=== PATIENT | male | born 1950 | race Caucasian/White ===

== ENCOUNTER 2025-04-14 13:37 | Inpatient (IN) | payer OTHER, SELFPAY ==
[2025-04-14 10:23] LABS: Hematocrit 42.3 % (39.0-52.0); Hemoglobin 13.8 g/dL (13.0-18.0); Mean Corp Hgb Conc. 32.6 g/dL (33.0-37.0); Mean Corpuscular Volume 93.2 fL (80.0-94.0); Nucleated Red Blood Cells % 0 % (-); Platelet Count 350 10^3/uL (130-400); Red Cell Dist. Width 16.3 % (11.5-14.5)
[2025-04-14 10:25] LABS: ALT (SGPT) 46 U/L (0-50); AST (SGOT) 46 U/L (17-59); Albumin 4.3 g/dl (3.5-5.0); Alkaline Phosphatase 54 U/L (38-126); Blood Urea Nitrogen 54 mg/dl (9-20); Carbon Dioxide 30 mmol/L (22-30); Chloride 101 mmol/L (98-107); Glucose 125 mg/dl (70-99); Potassium 4.0 mmol/L (3.5-5.1); Sodium 139 mmol/L (135-145); Total Protein 7.4 g/dl (6.3-8.2); eGFR 24.13
[2025-04-14 10:47] LABS: Calcium 15.8 mg/dl (8.4-10.2)
--- NOTE | 2025-04-14 11:29 | ED.GENMED ---
History of Present Illness
General
Chief Complaint: Abnormal Lab Value
Time Seen by Provider: 04/14/25 11:11
History of Present Illness
History of Present Illness:
74-year-old male with history of hypertension, rheumatoid arthritis, parathyroid and ectomy presents to the emergency department for evaluation of elevated calcium. Over the past several days he has been feeling weak and fatigued with brain fog and
nausea, has had poor p.o. intake for the past several days. He notes that he was recently started on Plaquenil for his RA which seems to have triggered the majority of his other symptoms. He had outpatient labs through his chief of [employer] showing a
calcium greater than 15.
Past History
Past History
ED Past Medical History: HTN, Other (Hyperparathyroidism.) and Other (Renal calculi.)
ED Past Surgical History: Orthopedic and Other (Parathyroidectomy)
Social History
Tobacco: Non-smoker
Alcohol: Occasional
Living: with family
Family History
Family History: Negative Diabetes, Hypertension, Early CAD, Asthma or Cancer
Review of Systems
Review of Systems
Allergies reviewed?: Yes
All Other Systems: ROS reviewed and negative except as documented in HPI and ROS
Phy Exam
Physical Exam
Physical Exam:
GEN: Well appearing, NAD, WDWN
HEENT: Oral mucosa dry, no scleral icterus
Cardiac: Regular rate and rhythm, no murmur
Lung: No respiratory distress, no tachypnea, lungs clear to auscultation bilaterally
MSK: No gross deformity or injuries
Skin: Good color, no pallor or jaundice, no rashes
Neuro: AO x3, moves all extremities freely
Psych: Calm, cooperative
Course
Orders/Labs/Results
Orders:
Orders
04/14/25 10:01
Complete Blood Count/With Diff Urgent
Comprehensive Metabolic Panel Urgent
Magnesium Urgent
Phosphorus Urgent
Vitamin D, 25-Oh Urgent
04/14/25 11:14
Add On- LAB Urgent
Tests Added?: magnesium, phosphorus, intact PTH, vitamin D 25-oh
Electrocardiogram (*1) Urgent
Reason for Study: QTc Monitoring
EKG- Treatment ONCE
0.9% Sodium Chloride 1000 ml [Nss] 1,000 ml IV BOLUS
04/14/25 11:34
Consult Nephrology [NEPHROLOGY CONSULT] Urgent
Consulting Provider: Raúl Merlos V.
Was physician already notified: Yes
04/14/25 12:00
Pamidronate Disodium [Aredia] 90 mg 0.9% Sodium Chloride 250 ml [Nss] 250 ml IV ONCE
04/14/25 12:01
Ionized Calcium Urgent
04/14/25 13:23
Admit/Transfer Patient As Directed
Co-Sign Provider:
Level of Care: Inpatient admission
Assign to:: Telemetry
Physician / Group: eugene
Diagnosis: hypercalcemia
Reason for Telemetry: Arrhythmia
Date to Stop Telemetry: 04/17/25
Time to Stop Telemetry: 11:00
Reason for Hospitalization: hypercalcemia
Expected length of stay greater than two midnights?: Yes
ELOS- Estimated Length of Stay in days: 2
I certify the patient meets the requirements for IP care: Yes
Code Status As Directed
Resuscitation Status: Full Code
PRN Pain Medication Management As Directed
May give lesser potent ordered pain med per pt: Yes
preference::
Protocol:: Medication orders for pain may be administered in a
manner that supports deferring to patient preference
when the pt is:
- Requesting an ordered lesser potent pain medication.
Least to most potent pain medications are defined
as: acetaminophen < NSAID < tramadol < opioids
(morphine, oxycodone, hydromorphone).
- Requesting a lesser dose of the same medication IF
ORDERED.
- Requesting a less intrusive route of administration
if both routes are prescribed by the provider (PO <
IV).
04/14/25 13:25
CR Chest - 2 Views Urgent
Comment:
Reason For Exam: SOB
04/14/25 13:39
Urinalysis Reflex To Culture Urgent
Date Specimen was Collected: 04/14/25
Time Specimen was Collected: 13:38
04/14/25 14:14
0.9% Sodium Chloride 1000 ml [Nss] 1,000 ml IV 150 mls/hr
04/14/25 14:14
Activity As Directed
Activity Level: As Tolerated
Vital Signs As Directed
Frequency: Per unit guidelines
DX Deep Vein Thrombosis Video Routine
04/14/25 Dinner
Regular
At Your Request: Full Participation
Does patient need a safe tray?: No
04/14/25 20:00
Heparin 5,000 units SC Q12
04/14/25 22:00
Gabapentin [Neurontin] 300 mg PO HS
04/15/25 06:00
Complete Blood Count/With Diff IN AM
Comprehensive Metabolic Panel IN AM
04/15/25 08:00
FOLic ACID [Folvite] 2 mg PO DAILY
Multivitamin [Theragran] 1 tablet PO DAILY
04/17/25 11:00
DC Protocol for Telemetry ONCE
Abnormal Lab Results
04/14/25 04/14/25
10:01 12:01
WBC 11.8 H 10^3/uL
(4.8-10.8)
RBC 4.54 L 10^6/uL
(4.70-6.10)
MCHC 32.6 L g/dL
(33.0-37.0)
RDW 16.3 H %
(11.5-14.5)
Abs Immat Gran (auto) 0.1 H 10^3/uL
(0-0.05)
Absolute Neuts (auto) 10.2 H 10^3/uL
(1.4-6.5)
Absolute Lymphs (auto) 0.6 L 10^3/uL
(1.2-3.4)
Absolute Monos (auto) 0.7 H 10^3/uL
(0.1-0.6)
Neutrophils % 85.9 H %
(42.2-75.2)
Lymphocytes % 5.2 L %
(20.5-51.1)
BUN 54 H mg/dl
(9-20)
Creatinine 2.7 H mg/dL
(0.7-1.3)
Glucose 125 H mg/dl
(70-99)
Calcium 15.8 H* mg/dl
(8.4-10.2)
Ionized Calcium 1.94 H* mMOL/L
(1.15-1.33)
Vitamin D 25-Hydroxy 29.4 L ng/mL
(30-80)
04/14/25 10:01
04/14/25 10:01
Vital Signs
Initial and Last Documented VS:
Initial Vital Signs
Temp Pulse Resp Pulse Ox
98.0 F 93 16 95
04/14/25 09:54 04/14/25 09:54 04/14/25 09:54 04/14/25 09:54
Last Documented Vital Signs
Temp Pulse Resp BP Pulse Ox
98.5 F 91 18 119/97 95
04/14/25 14:31 04/14/25 14:31 04/14/25 14:31 04/14/25 14:31 04/14/25 14:31
MDM/Problems Addressed
MDM/Problems Addressed:
Patient is hemodynamically stable. Hypercalcemia is mild. Likely multifactorial in setting of volume depletion, thiazide diuretic use, and history of parathyroidectomy. Will be started on IV fluids and bisphosphonate therapy, case was discussed
with nephrology for consultation. Will be admitted to the hospitalist service for further management
*Pulse Oximetry
SaO2: 95
Oxygen Mode of Delivery: Room air
Patient hypoxic: no
*Critical Care Note
Total Time (30-74mins, 75-104mins- exclusive of procedures): 35 minutes
comment:
Critical care time: 35 minutes
Critical care time was exclusive of: Separately billable procedures, treating other patients, and teaching time
Critical care was necessary to treat or prevent imminent or life-threatening deterioration of the following conditions: Hypercalcemia
Critical care time spent personally by me on the following activities:
[x] Review of old charts
[x] Obtaining history from patient or surrogate
[x] Ordering and review of the laboratory studies
[ ] Ordering and review of radiographic studies
[x] Ordering and performing treatments and interventions
[x] Patient patient's response to treatment
[x] Development of treatment plan with patient or surrogate
ED Attending Note
-
Portions of this chart may have been created with voice recognition software.� Occasional wrong word or��sound alike� substitutions may have occurred due to the inherent limitations of voice recognition software.
Discharge Plan
Departure
Patient Disposition: Admit
Date of Disposition: 04/14/25
Time of Disposition: 12:27
Admit to: Telemetry
Presentation/result/management discussed w/ accepting MD/DO: Hospitalist
Discharge Problem:
Hypercalcemia
Interventions
Interventions:
*Risk Screen - Suicide Last Done: 04/14/25 09:54
*General Assessment Last Done: 04/14/25 09:54
*Neglect/Abuse Screening Last Done: 04/14/25 09:54
*ED- Fall Risk Assessment Last Done: 04/14/25 11:45
*ED COVID-19 Vaccine History Last Done: 04/14/25 11:45
*Nursing Disposition Last Done: 04/14/25 14:10
Discharge Date and Time
Discharge Date/Time: 04/14/25 14:11
[2025-04-14 11:32] VITALS: BMI 30.7
[2025-04-14 11:41] VITALS: BP 107/78
[2025-04-14 12:00] VITALS: BP 114/72
[2025-04-14] MEDS: NSS 1000 IV ×3 (12:02→21:48)
[2025-04-14 12:09] LABS: Magnesium 1.7 mg/dl (1.6-2.3)
[2025-04-14] MEDS: AREDIA 280 MG IV (12:12)
[2025-04-14 12:25] LABS: Vitamin D, 25-OH*** 29.4 ng/mL (30-80)
--- NOTE | 2025-04-14 12:31 | W.CON.NEPH ---
Consultation
-
Date/Time Consultation Requested: 04/14/2025 11:30 AM
Date/Time Consultation Performed: 04/14/2025 11:30 AM
Requesting Provider: Dr. Hastings
Performing Provider: Dr. Merlos
Reason for Consultation: Acute kidney injury/hypercalcemia
Medical History
-
Chief Complaint: Acute kidney injury hypercalcemia
History of Present Illness:
The patient is a 74-year-old male with a past medical history of hypertension maintained on losartan and hydrochlorothiazide. He has a prior history of chronic kidney disease stage IIIb who follows with myself in our nephrology office. His last
baseline creatinine was stable at 1.77 with a calcium level of 9.8 noted on 02/15/2025 when I last seen him in the office. He has a prior history of nephro lithiasis and nephrocalcinosis and is maintained on potassium citrate and thiazide diuretic.
He had undergone previous partial parathyroidectomy for hypercalcemia greater than 20 years ago. 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 He presented to the hospital after feeling poorly over the past several days with associated weakness fatigue brain fog and nausea. His diet has also been poor as he has not been eating as much over the past several days.. He had
attributed this to the recent initiation of Plaquenil for his RA. When he presented to the hospital he was in acute kidney failure with a creatinine of 2.7 and hypercalcemic with a serum calcium of 15.8 and nephrology was consulted.
Past Medical History
Hypertension, chronic kidney disease stage IIIb 1.77 based, primary hyperparathyroidism with prior history of partial parathyroidectomy, renal calculi nephrocalcinosis, rheumatoid arthritis
Social History
Tobacco: Non-Smoker
Alcohol: Occasional
Drug: None
Personal:
Living: With Family
Family History
Family History: Not Pertinent
Allergies / Home Medications
Allergy/AdvReac Type Severity Reaction Status Date / Time
No Known Allergies Allergy Unverified 04/14/25 09:53
�Medication �Instructions �Recorded �Confirmed �Type
gabapentin 300 mg capsule 300 mg PO HS 11/01/18 04/14/25 History
Greens Supplement 1 tab PO DAILY 04/14/25 04/14/25 History
folic acid 1 mg tablet 2 mg PO DAILY 04/14/25 04/14/25 History
hydrochlorothiazide 25 mg tablet 25 mg PO DAILY 04/14/25 04/14/25 History
losartan 50 mg tablet 50 mg PO HS 04/14/25 04/14/25 History
methotrexate sodium 2.5 mg tablet 10 mg PO MARCANO 04/14/25 04/14/25 History
multivitamin 1 tab PO DAILY 04/14/25 04/14/25 History
potassium citrate 10 mEq (1,080 10 meq PO MEALS 04/14/25 04/14/25 History
mg) tablet,extended release
Review of Systems
-
History Source: Patient
All other systems: Negative unless noted
Constitutional: Fatigue
Respiratory: No Symptoms
Cardiac: No Symptoms
Abdomen/GI: Nausea and Anorexia
: No Symptoms
Musculoskeletal: Joint Pain
Skin: No Symptoms
Neurological: Other (Brain fog)
Endocrine: No Symptoms
Hematologic/Lymphatic: No Symptoms
Physical Exam
Vital Signs
Vital Signs
Temp Pulse Resp BP Pulse Ox
98.0 F 70 16 107/78 93
04/14/25 09:54 04/14/25 11:45 04/14/25 11:45 04/14/25 11:41 04/14/25 11:42
Lab Results
04/14/25 10:01
04/14/25 10:01
WBC 11.8 10^3/uL (4.8-10.8) H 04/14/25 10:01
RBC 4.54 10^6/uL (4.70-6.10) L 04/14/25 10:01
Hgb 13.8 g/dL (13.0-18.0) 04/14/25 10:01
Hct 42.3 % (39.0-52.0) 04/14/25 10:01
Plt Count 350 10^3/uL (130-400) 04/14/25 10:01
Sodium 139 mmol/L (135-145) 04/14/25 10:01
Potassium 4.0 mmol/L (3.5-5.1) 04/14/25 10:01
Chloride 101 mmol/L (98-107) 04/14/25 10:01
Carbon Dioxide 30 mmol/L (22-30) 04/14/25 10:01
BUN 54 mg/dl (9-20) H 04/14/25 10:01
Creatinine 2.7 mg/dL (0.7-1.3) H 04/14/25 10:01
eGFR 24.13 04/14/25 10:01
Glucose 125 mg/dl (70-99) H 04/14/25 10:01
Calcium 15.8 mg/dl (8.4-10.2) H* 04/14/25 10:01
Phosphorus 3.9 mg/dl (2.5-4.5) 04/14/25 10:01
Albumin 4.3 g/dl (3.5-5.0) 04/14/25 10:01
Physical Exam
General: AOx3, Nontoxic , NAD
HEENT: PERRL, EOMI, Anicteric, Conjunctivae Clear, Ear/Nose Intact, Hearing Normal, Oropharynx Clear/Moist, Dentition Intact, Facial Symmetry, Neck Supple, Neck: Trachea Midline, No JVD and No Thyromegaly, no Bruits
Respiratory: Clear to auscultation bilaterally with normal lung excursion
Cardiac: S1/S2 and Regular Rate/Rhythm
Breast: Deferred by me
Abdomen: Soft, Nontender, Nondistended, Normal Bowel Sounds and No Hepatosplenomegaly
Rectal: Deferred by Provider
Genito-urinary: No Costovertebral Tenderness
Extremities: No Clubbing, No Cyanosis and No Edema
Skin: No Rash or open lesions
Neuro: Nonfocal/Grossly Intact, CN II-XII (Intact) and Strength (Musculoskeletal exam 5 out of 5 both upper and lower extremities), no myoclonic activity no asterixis
Hematologic/Lymphatic: No Cervical Lymphadenopathy, No Submandibular Lymphadenopathy and No Supraclavicular Lymphadenopathy
Psych: Mood/afflect pleasant, Insight/judgement good and Appropriate
Vascular: plus 2 pedal and radial pulses
Data Reviewed
-
Medical Tests (Nuc Med, Echo etc): Other (EKG report reviewed: Sinus rhythm with left axis deviation inferior and anterior wave abnormalities at 70 bpm per report)
Labs: Labs Reviewed by me (BMP CBC)
Old Records: Reviewed (Reviewed previous old records from date 02/15/2025 in the electronic medical record creatinine 1.77 calcium 9.8 intact PTH 63)
Assessment/Plan
-
Impression:
VIDA
Chronic kidney disease stage IIIb (1.7)
Hypercalcemia
Rheumatoid arthritis on methotrexate and recent addition of Plaquenil
History of partial parathyroidectomy
History of nephrocalcinosis and nephrolithiasis
History of hypertension
Plan:
VIDA:
- Likely due to strong prerenal stimulus in setting of hypercalcemia and volume depletion with associated low blood pressure on presentation
- Withhold all antihypertensives and especially hydrochlorothiazide in setting of hypercalcemia and suspected volume depletion
- Accurate I's and O's Daily weights obtain urinalysis urine sodium and urine creatinine
-With hold ARB in setting of acute kidney injury can provide Procardia XL 30 mg twice daily once blood pressure rebounds
-NSS 150cc/hr after fluid bolus given in ER
Hypercalcemia:
- Of note patient's calcium was 9.8 with an associated intact PTH level of 63 on 02/17/2025
- No new medications have been added with the exception of Plaquenil by rheumatology
- Repeat intact PTH obtain activated vitamin D level ,vitamin D level, SPEP ,RODNEY level ,TSH, PTH RP
- Withhold hydrochlorothiazide
- 90 mg of IV pamidronate to be provided in the emergency room, if no response calcitonin will be provided
- Record accurate I's and O's and initiate now normal saline at 150 cc/h to promote Calciuresis
[2025-04-14 13:00] VITALS: BP 135/76
[2025-04-14 14:09] LABS: Urine Character Clear (Clear)
[2025-04-14 14:27] LABS: Urine Red Blood Cell 0-2 /HPF (0-2); Urine Squamous Cell 0-2 /LPF (Few)
[2025-04-14 14:31] VITALS: BP 119/97
[2025-04-14 14:32] VITALS: BMI 32.7
--- NOTE | 2025-04-14 14:34 | HPS.HSE ---
Family Physician
-
Family Physician: Ronny Jacobson
Chief Complaint
-
abnormal labs
History of Present Illness
74-year-old male past medical history of hypercalcemia status post partial parathyroidectomy 20 years ago, hypertension, chronic kidney disease 3B, renal calculi, nephrocalcinosis, rheumatoid arthritis methotrexate presenting with hypercalcemia and
outpatient labs.
He has been eating less and drinking less fluids. He has lost weight. Denies any blood in the stool.
He had routine blood work. He has been having shortness of breath for the past few months and fatigue. He has brain fog. He has cough in the mornings. Denies any fevers or chills. Denies nausea vomiting or abdominal pain or constipation or
diarrhea.
He was recently started on Plaquenil for rheumatoid arthritis.
Denies smoking or alcohol use.
Medical History
Past Medical History
Past Medical History: Reports Other (hypercalcemia status post partial parathyroidectomy 20 years ago, hypertension, chronic kidney disease 3B, renal calculi, nephrocalcinosis, rheumatoid arthritis methotrexate)
Past Surgical History: Reports None
Social History
Tobacco: Non-smoker
Alcohol: None
Drug: None
Family History
Family History: Not pertinent
Allergies / Home Medications
Allergies reflects when Allergies were last updated in [employer].
Home Medications with original date entered in [employer]
Allergy/Medication List:
Allergies
Allergy/AdvReac Type Severity Reaction Status Date / Time
No Known Allergies Allergy Unverified 04/14/25 09:53
Home Medications
gabapentin 300 mg capsule 300 mg PO HS 11/01/18
Greens Supplement 1 tab PO DAILY 04/14/25
folic acid 1 mg tablet 2 mg PO DAILY 04/14/25
hydrochlorothiazide 25 mg tablet 25 mg PO DAILY 04/14/25
losartan 50 mg tablet 50 mg PO HS 04/14/25
methotrexate sodium 2.5 mg tablet 10 mg PO MARCANO 04/14/25
multivitamin 1 tab PO DAILY 04/14/25
potassium citrate 10 mEq (1,080 mg) tablet,extended release 10 meq PO MEALS 04/14/25
Review of Systems
-
History Source: Patient
A 12 point ROS was completed and negative except as noted: Yes
Constitutional: Reports No Symptoms
EENT: Reports No Symptoms
Respiratory: Reports No Symptoms
Cardiac: Reports No Symptoms
Abdomen/GI: Reports No Symptoms
: Reports No Symptoms
Musculoskeletal: Reports No Symptoms
Skin: Reports No Symptoms
Neurological: Reports No Symptoms
Endocrine: Reports No Symptoms
Hematologic/Lymphatic: Reports No Symptoms
Psych: Reports No Symptoms
Physical Exam
Vital Signs
Vital Signs
Temp Pulse Resp BP Pulse Ox
98.5 F 91 18 119/97 95
04/14/25 14:31 04/14/25 14:31 04/14/25 14:31 04/14/25 14:31 04/14/25 14:31
Physical Exam
General: Well Developed, Well Nourished and No Apparent Distress
HEENT: NormoCephalic, Moist mucous membranes and Atraumatic
Respiratory: Clear
Cardiac: S1/S2 and Regular Rhythm; No Murmur or Rub
GI: Soft, Non Tender, Non Distended and Normal Bowel Sounds; No Organomegaly
Rectal: Deferred by Provider
Musculoskeletal: No Clubbing, No Cyanosis and No Edema
Skin: No Rash
Neuro: Nonfocal/grossly intact
Laboratory Results
-
04/14/25 10:01
04/14/25 10:01
Laboratory Results
Total Bilirubin 0.9 mg/dl (0.2-1.3) 04/14/25 10:01
AST 46 U/L (17-59) 04/14/25 10:01
ALT 46 U/L (0-50) 04/14/25 10:01
Alkaline Phosphatase 54 U/L (38-126) 04/14/25 10:01
Data Reviewed
-
Lab Data: Labs Reviewed by me
Old Records: Reviewed
Impression/Plan
-
IMPRESSION:
PLAN:
# Severe hypercalcemia likely due to hypovolemia, hydrochlorothiazide superimposed on VIDA/CKD 3B
# History of hypercalcemia status post partial parathyroidectomy 20 years ago
-Ionized calcium 1.94, calcium 15.8
-PTH 46, vitamin D 29
- IV fluids
- Pamidronate given
- Hold hydrochlorothiazide
- May require myeloma workup, follow-up with outpatient cancer screening
-Check I's and O's, urine output, urinalysis
- Nephrology following
# VIDA on CKD 3B likely prerenal
- IV fluids
- Hold losartan, hydrochlorothiazide
- Potassium
# Dyspnea possibly fatigue from hypercalcemia
- Check chest x-ray
Essential hypertension
- Hold hydrochlorothiazide, losartan,
Rheumatoid arthritis
- Hold methotrexate,
- Hold Plaquenil
-Continue folic acid
- Continue gabapentin
History of renal calculi/nephrocalcinosis
Full code
DVT prophylaxis�heparin
Regular diet
--- NOTE | 2025-04-14 14:42 | PTCARENOTE ---
Arrived to unit and ambulated with single point [facility] to room. Oriented to room. Call schofield within reach.
[2025-04-14 19:27] VITALS: BP 127/67
[2025-04-14] MEDS: HEPARIN 5000 UNITS SC (19:48)
[2025-04-14] MEDS: ZOFRAN 4 MG IV (20:13)
[2025-04-14] MEDS: NEURONTIN 300 MG PO (20:13)
[2025-04-14 23:04] VITALS: BP 113/61
[2025-04-15] VITALS (7 sets, daily range): BP systolic 112–137; BP diastolic 59–79; BMI 32.9
[2025-04-15] MEDS: NSS 1000 IV ×3 (04:28→21:26)
--- NOTE | 2025-04-15 07:52 | W.PN.HOSP.TC ---
Addendum entered and electronically signed by Jak Mojica MD 04/15/25 13:16:
Hypercalcemia could be multifactorial in the setting of immobility, dehydration and medication induced
S/p IV bisphosphonate
If not improving may need to consider calcitonin x 6 doses
IV fluids
VIDA on chronic stage IIIb
IV fluids
Urine sodium urine creatinine
Avoid nephrotoxins and hypotension
Follow renal function
Follow nephrology recs
Original Note:
Today's Communication/Plan
-
Send TSH, RODNEY levels, SPEP
Continue to monitor BMPs
Continue IV fluids
Assessment / Plan
Assessment / Plan
IMPRESSION
Patient is a 74-year-old male with past medical history of hypertension,Chronic kidney disease, nephrolithiasis, rheumatoid arthritis, s/p partial parathyroidectomy 20 years ago who presented to the ER with complaints of weakness and feeling
tired.He follows up with Dr. Castellanos in nephrology office for chronic kidney disease and his creatinine has been stable at 1.7 mL per last visit on 02/15/2025 his calcium level was around 9.8. Presented to the hospital for weakness, fatigue, brain
fog and nausea. Was recently started on Plaquenil for his rheumatoid arthritis and initially attributed symptoms to that but he had no energy at all so he took his blood work that showed creatinine of 2.7 and calcium of 15.8. He presented to the
hospital.
In terms of medications, he is on thiazides and potassium citrate to prevent nephrolithiasis
History of rheumatoid arthritis, previously on methotrexate, recently started on Plaquenil
History of parathyroidectomy about 20 years ago
CKD based on his baseline creatinine
Chest x-ray normal, EKG positive for mild left ventricular hypertrophy
Assessment/plan
# Hypercalcemia
Patient's calcium was 9.8 with an associated intact PTH level of 63 on 02/17/2025
Now calcium 15.8. Associated intact PTH level of 46 and ionized calcium 1.9
Vitamin D levels normal to slightly decreased, Phosphate levels normal, chest x-ray normal
Held hydrochlorothiazide
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 Pearosn held proguanil and methotrexate as soon as he started to feel the symptoms and it has been over the hold from last 2 weeks
He was not really active for the last 2 weeks and was mostly confined to bed, immobilization could be a contributory factor for the hypercalcemia
Non-smoker, check RODNEY levels for small cell lung cancer
Continue IV fluids
Input output monitoring
90 mg of IV pamidronate given in the ER, follow BMP to monitor response, no response plan to start calcitonin
Nephrology consult appreciated-recommended SPEP, RODNEY levels, TSH and PTH related peptide, also added a low-dose of Lasix stat as the patient had 1 L oxygen requirement
I called Dr. Pearson's office and updated about the admission of the patient, current treatment, and informed them that we are working him up for this new onset hypercalcemia and would like to know if they have any additional input on the case.
#VIDA
Acute on chronic CKD stage IIIb
Volume contraction secondary to hypercalcemia along with low on presentation suggests prerenal component
Continue volume resuscitation
Urine sodium and urine creatinine as per nephro
Hold nephrotoxins including ARB's
Monitor blood pressure and use Procardia to help with blood pressure control
#Other medical condition
#Essential hypertension
-monitor blood pressure and use extended release Procardia to help with blood pressure control
#Rheumatoid arthritis
-hold Plaquenil and methotrexate, continue folic acid and gabapentin
#History of nephrocalcinosis/nephrolithiasis
DVT prophylaxis-heparin
CODE STATUS-full code
Anticipated Discharge: > 48 hours
Subjective/Interval History
-
Date of Service: April 15, 2025
Patient seen and examined at bedside
Still has a lot of weakness but feels improved than yesterday
Non-smoker and had discontinued Pregnyl and methotrexate 2 weeks ago when he started to develop the symptoms
Objective Data
-
Labs:
Laboratory Results
04/15/25
07:18
WBC Pending
Hgb Pending
Hct Pending
Plt Count Pending
Sodium Pending
Potassium Pending
Chloride Pending
Carbon Dioxide Pending
BUN Pending
Creatinine Pending
Glucose Pending
Calcium Pending
Total Bilirubin Pending
AST Pending
ALT Pending
Alkaline Phosphatase Pending
Vital Signs:
Vital Signs
Temp Pulse Resp BP Pulse Ox
99.9 F 109 24 129/78 92
04/15/25 05:36 04/15/25 06:37 04/15/25 03:04 04/15/25 06:37 04/15/25 06:22
I&O
04/14/25 04/15/25 04/16/25
06:59 06:59 06:59
Intake Total 2039 / 2039
Output Total 1275 / 1275
Balance 765 / 765
Review of Systems
-
All other systems: Reviewed and negative
Physical Exam
-
General: Well Developed, Appears Chronically Ill, Obese and Other (Breathing on 1 L oxygen)
HEENT: Other (Dry mucous membranes)
Respiratory: Clear to Auscultation; Negative Wheezes, Rales or Rhonchi
Cardiac: Regular Rhythm and S1/S2
GI: Soft, Nontender and Normal Bowel Sounds
Musculoskeletal: No Clubbing, No Cyanosis and No Edema
Skin: Warm and Dry
Neuro: Awake and AO x 3
Psych: Calm
[2025-04-15 08:03] LABS: Hematocrit 37.1 % (39.0-52.0); Hemoglobin 12.3 g/dL (13.0-18.0); Mean Corp Hgb Conc. 33.2 g/dL (33.0-37.0); Mean Corpuscular Volume 91.2 fL (80.0-94.0); Nucleated Red Blood Cells % 0 % (-); Platelet Count 275 10^3/uL (130-400); Red Cell Dist. Width 16.1 % (11.5-14.5)
[2025-04-15 08:22] LABS: ALT (SGPT) 40 U/L (0-50); AST (SGOT) 39 U/L (17-59); Albumin 3.7 g/dl (3.5-5.0); Alkaline Phosphatase 52 U/L (38-126); Blood Urea Nitrogen 47 mg/dl (9-20); Calcium 12.6 mg/dl (8.4-10.2); Carbon Dioxide 26 mmol/L (22-30); Chloride 107 mmol/L (98-107); Estimated Creatinine Clearance 33 ml/min; Glucose 101 mg/dl (70-99); Magnesium 1.5 mg/dl (1.6-2.3); Potassium 3.9 mmol/L (3.5-5.1); Sodium 140 mmol/L (135-145); Total Protein 6.3 g/dl (6.3-8.2); eGFR 27.79
[2025-04-15] MEDS: THERAGRAN 1 TABLET PO (08:22)
[2025-04-15] MEDS: FOLVITE 2 MG PO (08:22)
[2025-04-15] MEDS: HEPARIN 5000 UNITS SC ×2 (08:23→20:02)
[2025-04-15] MEDS: NSS 250 IV (08:59)
[2025-04-15] MEDS: MAGNESIUM SULFATE 50 IV (09:56)
--- NOTE | 2025-04-15 10:41 | W.PN.NEPH.PH ---
Today's Communication / Plan
-
Normal saline, IV Lasix
Assessment/Plan
-
Impression:
VIDA
Chronic kidney disease stage IIIb (1.7)
Hypercalcemia
Rheumatoid arthritis on methotrexate and recent addition of Plaquenil
History of partial parathyroidectomy
History of nephrocalcinosis and nephrolithiasis
History of hypertension
Plan:
VIDA:
- Likely due to strong prerenal stimulus in setting of hypercalcemia and volume depletion with associated low blood pressure on presentation
- Withhold all antihypertensives and especially hydrochlorothiazide in setting of hypercalcemia and suspected volume depletion
- Accurate I's and O's Daily weights obtain urinalysis urine sodium and urine creatinine
-With hold ARB in setting of acute kidney injury can provide Procardia XL 30 mg twice daily once blood pressure rebounds
-NSS 150cc/hr after fluid bolus given in ER
Hypercalcemia:
- Of note patient's calcium was 9.8 with an associated intact PTH level of 63 on 02/17/2025
- No new medications have been added with the exception of Plaquenil by rheumatology
- Repeat intact PTH obtain activated vitamin D level ,vitamin D level, SPEP ,RODNEY level ,TSH, PTH RP
- Withhold hydrochlorothiazide
- 90 mg of IV pamidronate Given
- Record accurate I's and O's and initiate now normal saline at 150 cc/h
Patient requiring oxygen I will give 1 dose of Lasix. A chest x-ray independently reviewed no pulmonary edema though this will help with calcium as well
-
-
Date of Service: April 15, 2025
Labs
-
Labs:
WBC 9.0 10^3/uL (4.8-10.8) 04/15/25 07:18
RBC 4.07 10^6/uL (4.70-6.10) L 04/15/25 07:18
Hgb 12.3 g/dL (13.0-18.0) L 04/15/25 07:18
Hct 37.1 % (39.0-52.0) L 04/15/25 07:18
Plt Count 275 10^3/uL (130-400) D 04/15/25 07:18
Sodium 140 mmol/L (135-145) 04/15/25 07:18
Potassium 3.9 mmol/L (3.5-5.1) 04/15/25 07:18
Chloride 107 mmol/L (98-107) 04/15/25 07:18
Carbon Dioxide 26 mmol/L (22-30) 04/15/25 07:18
BUN 47 mg/dl (9-20) H 04/15/25 07:18
Creatinine 2.4 mg/dL (0.7-1.3) H 04/15/25 07:18
eGFR 27.79 04/15/25 07:18
Glucose 101 mg/dl (70-99) H 04/15/25 07:18
Calcium 12.6 mg/dl (8.4-10.2) H D 04/15/25 07:18
Phosphorus 3.9 mg/dl (2.5-4.5) 04/14/25 10:01
Albumin 3.7 g/dl (3.5-5.0) 04/15/25 07:18
Physical Exam
-
Vital Signs:
Vital Signs
Temp Pulse Resp BP Pulse Ox
98.5 F 103 16 133/71 91
04/15/25 07:00 04/15/25 07:00 04/15/25 07:00 04/15/25 07:00 04/15/25 08:25
Respiratory:: Bilateral: CTA
Lung Excursion:: Normal
Abdomen:: Soft
Bowel Sounds:: Normal
Extremity Edema:: +1: Bilateral:
[2025-04-15 10:45] LABS: TSH 0.48 uIU/ml (0.47-4.68)
[2025-04-15] MEDS: LASIX 20 MG IV (11:20)
--- NOTE | 2025-04-15 16:51 | PTCARENOTE ---
No changes in assessment noted. Plan of care ongoing.
[2025-04-15] MEDS: NEURONTIN 300 MG PO (20:02)
[2025-04-16 03:32] VITALS: BP 107/66
[2025-04-16] MEDS: NSS 1000 IV ×2 (03:49→11:22)
[2025-04-16 04:58] VITALS: BMI 33.2
[2025-04-16 07:30] VITALS: BP 116/69
[2025-04-16 07:56] LABS: Blood Urea Nitrogen 40 mg/dl (9-20); Calcium 10.4 mg/dl (8.4-10.2); Carbon Dioxide 26 mmol/L (22-30); Chloride 110 mmol/L (98-107); Estimated Creatinine Clearance 40 ml/min; Glucose 83 mg/dl (70-99); Magnesium 2.1 mg/dl (1.6-2.3); Potassium 3.6 mmol/L (3.5-5.1); Sodium 139 mmol/L (135-145); eGFR 34.59
[2025-04-16] MEDS: THERAGRAN 1 TABLET PO (10:01)
[2025-04-16] MEDS: FOLVITE 2 MG PO (10:01)
[2025-04-16] MEDS: HEPARIN 5000 UNITS SC ×2 (10:03→19:37)
[2025-04-16 11:25] VITALS: BP 116/69
--- NOTE | 2025-04-16 11:39 | W.PN.NEPH.PH ---
Today's Communication / Plan
-
Continue saline drip
Assessment/Plan
-
Impression:
VIDA
Chronic kidney disease stage IIIb (1.7)
Hypercalcemia
Rheumatoid arthritis on methotrexate and recent addition of Plaquenil
History of partial parathyroidectomy
History of nephrocalcinosis and nephrolithiasis
History of hypertension
Plan:
VIDA:
- Likely due to strong prerenal stimulus in setting of hypercalcemia and volume depletion with associated low blood pressure on presentation
- Withhold all antihypertensives and especially hydrochlorothiazide in setting of hypercalcemia and suspected volume depletion
- Accurate I's and O's Daily weights obtain urinalysis urine sodium and urine creatinine
-With hold ARB in setting of acute kidney injury
-NSS 150cc/hr after fluid bolus given in ER
Hypercalcemia:
- Of note patient's calcium was 9.8 with an associated intact PTH level of 63 on 02/17/2025
- No new medications have been added with the exception of Plaquenil by rheumatology= after further discussion with the patient and his since initiation has been eating less and not feeling well
- Repeat intact PTH obtain activated vitamin D level = 29,vitamin D level, SPEP ,RODNEY level ,TSH, PTH RP= pending
- Withhold hydrochlorothiazide
- 90 mg of IV pamidronate Given on admission
- Record accurate I's and O's
Continue normal saline at 150 cc/h
Given Lasix yesterday will hold today
-
-
Date of Service: April 16, 2025
CC / HPI / ROS
-
Chief Complaint:
Hyperkalemia
History of Present Illness:
Acute kidney injury and hyperkalemia
Review of Systems:
No chest pain shortness of breath yesterday. Comfortable now remains on nasal cannula
Labs
-
Labs:
WBC 9.0 10^3/uL (4.8-10.8) 04/15/25 07:18
RBC 4.07 10^6/uL (4.70-6.10) L 04/15/25 07:18
Hgb 12.3 g/dL (13.0-18.0) L 04/15/25 07:18
Hct 37.1 % (39.0-52.0) L 04/15/25 07:18
Plt Count 275 10^3/uL (130-400) D 04/15/25 07:18
Sodium 139 mmol/L (135-145) 04/16/25 06:34
Potassium 3.6 mmol/L (3.5-5.1) 04/16/25 06:34
Chloride 110 mmol/L (98-107) H 04/16/25 06:34
Carbon Dioxide 26 mmol/L (22-30) 04/16/25 06:34
BUN 40 mg/dl (9-20) H 04/16/25 06:34
Creatinine 2.0 mg/dL (0.7-1.3) H 04/16/25 06:34
eGFR 34.59 04/16/25 06:34
Glucose 83 mg/dl (70-99) 04/16/25 06:34
Calcium 10.4 mg/dl (8.4-10.2) H D 04/16/25 06:34
Phosphorus 3.9 mg/dl (2.5-4.5) 04/14/25 10:01
Albumin 3.7 g/dl (3.5-5.0) 04/15/25 07:18
Physical Exam
-
Vital Signs:
Vital Signs
Temp Pulse Resp BP Pulse Ox
97.5 F 60 16 116/69 93
04/16/25 07:30 04/16/25 07:30 04/16/25 07:30 04/16/25 07:30 04/16/25 10:00
Respiratory:: Bilateral: CTA
Lung Excursion:: Normal
Abdomen:: Soft
Bowel Sounds:: Normal
Extremity Edema:: +1: Bilateral:
--- NOTE | 2025-04-16 11:41 | CM ---
Patient seen bedside w/ spouse, initial assessment completed. Patient is a 74-year-old male past medical history of hypercalcemia status post partial parathyroidectomy 20 years ago, hypertension, chronic kidney disease 3B, renal calculi,
nephrocalcinosis, rheumatoid arthritis methotrexate presenting with hypercalcemia and outpatient labs. On 2L O2.
Patient resides w/ spouse in a 2STH, 2 steps to enter from the outside. Patient is independent w/ ambulation, no device required. Independent w/ ADLs and personal care. Patient has a shower chair in the bathroom. Denies SNF hx. Home PT in 2021 and
2022. Recent OP therapy for hand.
Address, point of contact and insurance verified. Patient and spouse requesting their son be added as secondary contact. Admissions updated
PCP: Ronny Lofton
Pharmacy: [facility]
Plan: Home, no needs likely
--- NOTE | 2025-04-16 12:10 | W.PN.HOSP.TC ---
Addendum entered and electronically signed by Jak Mojica MD 04/16/25 13:46:
Hypercalcemia could be multifactorial in the setting of immobility, dehydration and medication induced
S/p IV bisphosphonate
If not improving may need to consider calcitonin x 6 doses
IV fluids
VIDA on chronic stage IIIb
IV fluids
Urine sodium urine creatinine
Avoid nephrotoxins and hypotension
Follow renal function
Follow nephrology recs
Original Note:
Today's Communication/Plan
-
Legal Director consulted for recs if another dose of lasix need today
doppler US of left lower leg for left leg swelling
Assessment / Plan
Assessment / Plan
IMPRESSION
Patient is a 74-year-old male with past medical history of hypertension,Chronic kidney disease, nephrolithiasis, rheumatoid arthritis, s/p partial parathyroidectomy 20 years ago who presented to the ER with complaints of weakness and feeling
tired.He follows up with Dr. Castellanos in nephrology office for chronic kidney disease and his creatinine has been stable at 1.7 mL per last visit on 02/15/2025 his calcium level was around 9.8. Presented to the hospital for weakness, fatigue, brain
fog and nausea. Was recently started on Plaquenil for his rheumatoid arthritis and initially attributed symptoms to that but he had no energy at all so he took his blood work that showed creatinine of 2.7 and calcium of 15.8. He presented to the
hospital.
In terms of medications, he is on thiazides and potassium citrate to prevent nephrolithiasis
History of rheumatoid arthritis, previously on methotrexate, recently started on Plaquenil
History of parathyroidectomy about 20 years ago
CKD based on his baseline creatinine
Chest x-ray normal, EKG positive for mild left ventricular hypertrophy
Assessment/plan
# Hypercalcemia
Patient's calcium was 9.8 with an associated intact PTH level of 63 on 02/17/2025
Now calcium trending down 15.8-->12.6--->10.4 Associated intact PTH level of 46 and ionized calcium 1.9
Vitamin D levels normal to slightly decreased, Phosphate levels normal, chest x-ray normal
Held hydrochlorothiazide
Patient stated that his access lead Dr. Pearson held proguanil and methotrexate as soon as he started to feel the symptoms and it has been over the hold from last 2 weeks
He was not really active for the last 2 weeks and was mostly confined to bed, immobilization could be a contributory factor for the hypercalcemia
Non-smoker, check RODNEY levels for small cell lung cancer
discontinued IV fluids
Input output monitoring
90 mg of IV pamidronate given in the ER, follow BMP to monitor response, no response plan to start calcitonin
Nephrology consult appreciated-recommended SPEP, RODNEY levels, TSH and PTH related peptide, and no other dose of Lasix needed today, Pt is on 2 L oxygen.
I called Dr. Pearson's office and updated about the admission of the patient, current treatment, and informed them that we are working him up for this new onset hypercalcemia and would like to know if they have any additional input on the case.
#VIDA
Acute on chronic CKD stage IIIb
Volume contraction secondary to hypercalcemia along with low on presentation suggests prerenal component
Continue volume resuscitation
Urine sodium and urine creatinine as per nephro, urine Na 117 today
BUN 47-->40 today
Hold nephrotoxins including ARB's
Monitor blood pressure and use Procardia to help with blood pressure control
#Left leg swelling
left lower lef swelling noted today
left lower leg Doppler to rule out DVT
monitor symptom
#Other medical condition
#Essential hypertension
-monitor blood pressure and use extended release Procardia to help with blood pressure control
#Rheumatoid arthritis
-hold Plaquenil and methotrexate, continue folic acid and gabapentin
#History of nephrocalcinosis/nephrolithiasis
DVT prophylaxis-heparin
CODE STATUS-full code
Anticipated Discharge: > 48 hours
Subjective/Interval History
-
Date of Service: April 16, 2025
Patient is 'feeling good' today. Stated he is improving. no chest pain , no sob, no abdominal pain.
Objective Data
-
Labs:
Laboratory Results
04/16/25
06:34
Sodium 139
Potassium 3.6
Chloride 110 H
Carbon Dioxide 26
BUN 40 H
Creatinine 2.0 H
Glucose 83
Calcium 10.4 H D
Vital Signs:
Vital Signs
Temp Pulse Resp BP Pulse Ox
97.5 F 60 16 116/69 93
04/16/25 07:30 04/16/25 07:30 04/16/25 07:30 04/16/25 07:30 04/16/25 10:00
I&O
04/15/25 04/16/25 04/17/25
06:59 06:59 06:59
Intake Total 2040 / 2040 3240 / 3240
Output Total 1275 / 1275 400 / 400
Balance 765 / 765 2840 / 2840
Review of Systems
-
All other systems: Reviewed and negative
Physical Exam
-
General: Well Developed, Appears Chronically Ill, Obese and Other (Breathing on 2 L oxygen)
HEENT: Other (Dry mucous membranes)
Respiratory: Clear to Auscultation
Cardiac: Regular Rhythm and S1/S2
GI: Soft, Nontender and Normal Bowel Sounds
Musculoskeletal: No Clubbing, No Cyanosis, No Edema and Other (Left lower leg swelling )
Skin: Warm and Dry
Neuro: Awake and AO x 3
Psych: Calm
[2025-04-16 15:15] VITALS: BP 126/68
[2025-04-16] MEDS: NSS IV (18:17)
[2025-04-16 19:31] VITALS: BP 143/71
[2025-04-16] MEDS: NEURONTIN 300 MG PO (19:37)
[2025-04-16 23:14] VITALS: BP 132/74
[2025-04-17 04:09] VITALS: BP 131/71
[2025-04-17 05:53] VITALS: BMI 33.1
[2025-04-17 07:41] VITALS: BP 128/74
[2025-04-17] MEDS: HEPARIN 5000 UNITS SC ×2 (07:52→21:18)
[2025-04-17] MEDS: NSS 1000 IV ×2 (07:54→15:32)
[2025-04-17] MEDS: THERAGRAN 1 TABLET PO (07:54)
[2025-04-17] MEDS: FOLVITE 2 MG PO (08:01)
[2025-04-17 08:07] LABS: Hematocrit 34.9 % (39.0-52.0); Hemoglobin 11.4 g/dL (13.0-18.0); Mean Corp Hgb Conc. 32.7 g/dL (33.0-37.0); Mean Corpuscular Volume 93.8 fL (80.0-94.0); Platelet Count 232 10^3/uL (130-400); Red Cell Dist. Width 15.8 % (11.5-14.5)
[2025-04-17 08:57] LABS: ALT (SGPT) 42 U/L (0-50); AST (SGOT) 38 U/L (17-59); Albumin 3.3 g/dl (3.5-5.0); Alkaline Phosphatase 49 U/L (38-126); Blood Urea Nitrogen 34 mg/dl (9-20); Calcium 11.0 mg/dl (8.4-10.2); Carbon Dioxide 26 mmol/L (22-30); Chloride 111 mmol/L (98-107); Estimated Creatinine Clearance 44 ml/min; Glucose 89 mg/dl (70-99); Potassium 3.9 mmol/L (3.5-5.1); Sodium 141 mmol/L (135-145); Total Protein 6.0 g/dl (6.3-8.2); eGFR 39.25
--- NOTE | 2025-04-17 09:29 | W.PN.HOSP.TC ---
Addendum entered and electronically signed by Jak Mojica MD 04/18/25 13:32:
see update note
Original Note:
Today's Communication/Plan
-
If serum calcium rises tomorrow I will be forced to give pamidronate again per nephro. recs
Assessment / Plan
Assessment / Plan
IMPRESSION
Patient is a 74-year-old male with past medical history of hypertension,Chronic kidney disease, nephrolithiasis, rheumatoid arthritis, s/p partial parathyroidectomy 20 years ago who presented to the ER with complaints of weakness and feeling
tired.He follows up with Dr. Castellanos in nephrology office for chronic kidney disease and his creatinine has been stable at 1.7 mL per last visit on 02/15/2025 his calcium level was around 9.8. Presented to the hospital for weakness, fatigue, brain
fog and nausea. Was recently started on Plaquenil for his rheumatoid arthritis and initially attributed symptoms to that but he had no energy at all so he took his blood work that showed creatinine of 2.7 and calcium of 15.8. He presented to the
hospital.
In terms of medications, he is on thiazides and potassium citrate to prevent nephrolithiasis
History of rheumatoid arthritis, previously on methotrexate, recently started on Plaquenil
History of parathyroidectomy about 20 years ago
CKD based on his baseline creatinine
Chest x-ray normal, EKG positive for mild left ventricular hypertrophy
Assessment/plan
# Hypercalcemia
likely due to immobility, dehydration and medication induced
Patient's calcium was 9.8 with an associated intact PTH level of 63 on 02/17/2025
calcium 15.8-->12.6--->10.4-->11 Associated intact PTH level of 46 and ionized calcium 1.9
Vitamin D levels normal to slightly decreased, Phosphate levels normal, chest x-ray normal
Held hydrochlorothiazide
held proguanil and methotrexate as soon as he started to feel the symptoms and it has been over the hold from last 2 weeks
He was not really active for the last 2 weeks and was mostly confined to bed, immobilization could be a contributory factor for the hypercalcemia
Non-smoker, check RODNEY levels for small cell lung cancer
Repeat intact PTH obtain activated vitamin D level = 29,vitamin D level
IV fluids
Input output monitoring
90 mg of IV pamidronate given in the ER, follow BMP to monitor response, no response plan to start calcitonin if still raises
Nephrology consult appreciated-recommended SPEP, RODNEY levels, TSH and PTH related peptide
no Lasix needed per nephrology
Dr. Pearson's office informed and updated about the admission of the patient, current treatment, and informed them that we are working him up for this new onset hypercalcemia and would like to know if they have any additional input on the case.
#VIDA on CKD stage 3b
improving to chronic CKD stage IIIb
Creatinine approached baseline at 1.8
NSS 100cc/hr
Volume contraction secondary to hypercalcemia along with low on presentation suggests prerenal component
Continue volume resuscitation
Urine sodium and urine creatinine as per nephro, urine Na 117 today
Hold nephrotoxins including ARB's
History of nephrocalcinosis and nephrolithiasis
Record accurate I's and O's
Monitor blood pressure and use Procardia to help with blood pressure control
#Left leg swelling
Improved
left lower left swelling noted today
left lower leg Doppler to rule out DVT negative for DVT
monitor symptom
#Other medical condition
#Essential hypertension
-monitor blood pressure and use extended release Procardia to help with blood pressure control
#Rheumatoid arthritis
-hold Plaquenil and methotrexate, continue folic acid and gabapentin
#History of nephrocalcinosis/nephrolithiasis
DVT prophylaxis-heparin
CODE STATUS-full code
Anticipated Discharge: 24 - 48 hours
Subjective/Interval History
-
Date of Service: April 17, 2025
Patient continues feeling 'good today. Off the O2 supplement. No chest pain ,abdominal pain , nausea, vomiting, fever , chills.
Objective Data
-
Labs:
Laboratory Results
04/17/25
07:26
WBC 7.0
Hgb 11.4 L
Hct 34.9 L
Plt Count 232
Sodium 141
Potassium 3.9
Chloride 111 H
Carbon Dioxide 26
BUN 34 H
Creatinine 1.8 H
Glucose 89
Calcium 11.0 H
Total Bilirubin 0.5
AST 38
ALT 42
Alkaline Phosphatase 49
Vital Signs:
Vital Signs
Temp Pulse Resp BP Pulse Ox
97.8 F 65 18 131/71 95
04/17/25 04:09 04/17/25 04:09 04/17/25 04:09 04/17/25 04:09 04/17/25 04:09
I&O
04/16/25 04/17/25 04/18/25
06:59 06:59 06:59
Intake Total 3240 / 3240 480 / 480
Output Total 400 / 400
Balance 2840 / 2840 480 / 480
Review of Systems
-
History Source: Patient
Constitutional: Reports No Symptoms
Respiratory: Reports No Symptoms
Cardiac: Reports No Symptoms
Abdomen/GI: Reports No Symptoms
Genitourinary: Reports No Symptoms
Musculoskeletal: Reports No Symptoms
Neuro: Reports No Symptoms
Physical Exam
-
General: Well Developed and Obese
Respiratory: Clear to Auscultation
Cardiac: Regular Rhythm and S1/S2
GI: Soft, Nontender and Normal Bowel Sounds
Musculoskeletal: No Clubbing, No Cyanosis and No Edema
Skin: Warm and Dry
Neuro: Awake and AO x 3
Psych: Calm
--- NOTE | 2025-04-17 10:29 | CM ---
Chart reviewed. Met with pt bedside. IMM given and placed on chart. No mcdowell in D/C plan. On room air at this time.
Plan: Home no needs
[2025-04-17 11:01] VITALS: BP 126/67
--- NOTE | 2025-04-17 11:20 | W.PN.NEPH.PH ---
Today's Communication / Plan
-
Maintain IV fluid
Follow BMP
Hypercalcemia workup in progress
Assessment/Plan
-
Impression:
VIDA
Chronic kidney disease stage IIIb (1.7)
Hypercalcemia
Rheumatoid arthritis on methotrexate and recent addition of Plaquenil
History of partial parathyroidectomy
History of nephrocalcinosis and nephrolithiasis
History of hypertension
Plan:
VIDA:
- Likely due to strong prerenal stimulus in setting of hypercalcemia and volume depletion with associated low blood pressure on presentation
- Withhold all antihypertensives and especially hydrochlorothiazide in setting of hypercalcemia and suspected volume depletion
- Accurate I's and O's Daily weights obtain urinalysis urine sodium and urine creatinine
-With hold ARB in setting of acute kidney injury
-Creatinine approached baseline at 1.8 and grossly
-NSS 100cc/hr
Hypercalcemia:
- Of note patient's calcium was 9.8 with an associated intact PTH level of 63 on 02/17/2025
- No new medications have been added with the exception of Plaquenil by rheumatology= after further discussion with the patient and his since initiation has been eating less and not feeling well
- Repeat intact PTH obtain activated vitamin D level = 29,vitamin D level, SPEP ,RODNEY level ,TSH, PTH RP= pending
- Withholding hydrochlorothiazide
- 90 mg of IV pamidronate Given on admission
- Record accurate I's and O's
Continue normal saline at 100 cc/h
-Unfortunately calcium back up to 11 and I will continue IV fluid
- If serum calcium rises tomorrow I will be forced to give pamidronate again
- Still awaiting diagnostic workup for hypercalcemia
-
-
Date of Service: April 17, 2025
CC / HPI / ROS
-
Chief Complaint:
Hyperkalemia
History of Present Illness:
Acute kidney injury and hyperkalemia
Creatinine down to 1.8
Hemodynamically stable
Serum calcium back up to
Review of Systems:
Not weak
No chest pain shortness of breath yesterday. Comfortable now remains on nasal cannula
Labs
-
Labs:
WBC 7.0 10^3/uL (4.8-10.8) 04/17/25 07:26
RBC 3.72 10^6/uL (4.70-6.10) L 04/17/25 07:26
Hgb 11.4 g/dL (13.0-18.0) L 04/17/25 07:26
Hct 34.9 % (39.0-52.0) L 04/17/25 07:26
Plt Count 232 10^3/uL (130-400) 04/17/25 07:26
Sodium 141 mmol/L (135-145) 04/17/25 07:26
Potassium 3.9 mmol/L (3.5-5.1) 04/17/25 07:26
Chloride 111 mmol/L (98-107) H 04/17/25 07:26
Carbon Dioxide 26 mmol/L (22-30) 04/17/25 07:26
BUN 34 mg/dl (9-20) H 04/17/25 07:26
Creatinine 1.8 mg/dL (0.7-1.3) H 04/17/25 07:26
eGFR 39.25 04/17/25 07:26
Glucose 89 mg/dl (70-99) 04/17/25 07:26
Calcium 11.0 mg/dl (8.4-10.2) H 04/17/25 07:26
Phosphorus 3.9 mg/dl (2.5-4.5) 04/14/25 10:01
Albumin 3.3 g/dl (3.5-5.0) L 04/17/25 07:26
Physical Exam
-
Vital Signs:
Vital Signs
Temp Pulse Resp BP Pulse Ox
98.3 F 60 18 128/74 98
04/17/25 07:41 04/17/25 07:41 04/17/25 07:41 04/17/25 07:41 04/17/25 07:41
Respiratory:: Bilateral: CTA
Lung Excursion:: Normal
Abdomen:: Soft
Bowel Sounds:: Normal
Extremity Edema:: None: Bilateral:
--- NOTE | 2025-04-17 13:47 | W.PN.UPDATE ---
Update Note
Progress Note Update
Hypercalcemia could be multifactorial in the setting of immobility, dehydration and medication induced
S/p IV bisphosphonate
If not improving may need to consider calcitonin x 6 doses
IV fluids
VIDA on chronic stage IIIb
IV fluids
Urine sodium urine creatinine
Avoid nephrotoxins and hypotension
Follow renal function
Follow nephrology recs
[2025-04-17 15:45] VITALS: BP 121/63
[2025-04-17 19:55] VITALS: BP 137/83
[2025-04-17] MEDS: NEURONTIN 300 MG PO (21:18)
[2025-04-17 23:39] VITALS: BP 139/76
[2025-04-18 03:15] VITALS: BP 143/68
[2025-04-18] MEDS: NSS 1000 IV (03:33)
[2025-04-18] MEDS: IMODIUM 2 MG PO ×2 (03:33→14:13)
[2025-04-18 04:09] VITALS: BP 143/68
[2025-04-18 06:00] VITALS: BMI 33.2
[2025-04-18 07:18] VITALS: BP 165/89
--- NOTE | 2025-04-18 07:43 | W.PN.HOSP.TC ---
Today's Communication/Plan
-
Plan reviewed with attending
Ca stabilized.
[place] scan today to r/o malignant cause of hypercalcemia. Once CT is read, pt can be discharged.
Close nephrology f/u
Encourage appropriate hydration on discharge
Assessment / Plan
Assessment / Plan
IMPRESSION
Patient is a 74-year-old male with past medical history of hypertension,Chronic kidney disease, nephrolithiasis, rheumatoid arthritis, s/p partial parathyroidectomy 20 years ago who presented to the ER with complaints of weakness and feeling
tired.He follows up with Dr. Castellanos in nephrology office for chronic kidney disease and his creatinine has been stable at 1.7 mL per last visit on 02/15/2025 his calcium level was around 9.8. Presented to the hospital for weakness, fatigue, brain
fog and nausea. Was recently started on Plaquenil for his rheumatoid arthritis and initially attributed symptoms to that but he had no energy at all so he took his blood work that showed creatinine of 2.7 and calcium of 15.8. He presented to the
hospital.
In terms of medications, he is on thiazides and potassium citrate to prevent nephrolithiasis
History of rheumatoid arthritis, previously on methotrexate, recently started on Plaquenil
History of parathyroidectomy about 20 years ago
CKD based on his baseline creatinine
Chest x-ray normal, EKG positive for mild left ventricular hypertrophy
Pt eager to go home soon. He reports feeling better except exacerbation of his chronic IBS. 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 Chronic back stable. AFVSS. Ca improved today
10, WNL.
Assessment/plan
# Hypercalcemia
likely due to immobility, dehydration and medication induced
Patient's calcium was 9.8 with an associated intact PTH level of 63 on 02/17/2025
calcium 15.8-->12.6--->10.4-->11 Associated intact PTH level of 46 and ionized calcium 1.9
Vitamin D levels normal to slightly decreased, Phosphate levels normal, chest x-ray normal
Held hydrochlorothiazide
held proguanil and methotrexate as soon as he started to feel the symptoms and it has been over the hold from last 2 weeks
He was not really active for the last 2 weeks and was mostly confined to bed, immobilization could be a contributory factor for the hypercalcemia
Non-smoker, check RODNEY levels for small cell lung cancer
Repeat intact PTH obtain activated vitamin D level = 29,vitamin D level
IV fluids
Input output monitoring
90 mg of IV pamidronate given in the ER, follow BMP to monitor response, no response plan to start calcitonin if still raises. Stable, hold calcitonin. Close f/u nephrology outpt.
Nephrology consult appreciated-recommended SPEP, RODNEY levels, TSH and PTH related peptide. RODNEY and PTH WNL.
no Lasix needed per nephrology
[place] scanned today to evaluate for cause of hypercalcemia.
Dr. Pearson's office informed and updated about the admission of the patient, current treatment, and informed them that we are working him up for this new onset hypercalcemia and would like to know if they have any additional input on the case.
#VIDA on CKD stage 3b
improving to chronic CKD stage IIIb
Creatinine approached baseline at 1.8
NSS 100cc/hr
Volume contraction secondary to hypercalcemia along with low on presentation suggests prerenal component
Continue volume resuscitation
Urine sodium and urine creatinine as per nephro, urine Na 117 today
Hold nephrotoxins including ARB's
History of nephrocalcinosis and nephrolithiasis
Record accurate I's and O's
Monitor blood pressure and use Procardia to help with blood pressure control
#Left leg swelling
Improved
left lower left swelling noted today
left lower leg Doppler to rule out DVT negative for DVT
monitor symptom
#Other medical condition
#Essential hypertension
-monitor blood pressure and use extended release Procardia to help with blood pressure control
#Rheumatoid arthritis
-hold Plaquenil and methotrexate, continue folic acid and gabapentin
#History of nephrocalcinosis/nephrolithiasis
DVT prophylaxis-heparin
CODE STATUS-full code
Anticipated Discharge: Today
Subjective/Interval History
-
Date of Service: April 18, 2025
Pt reports resolved weakness but worsening of IBS. He has IBS at baseline and reports that his recent diet at the hospital has exacerbated his symptoms. Discussed any new back pain. He describes new back pain in the last year that he worked up with
[facility] outpt already. No acute changes.
Pt reports that these symptoms has had been having feel very similar to when he had hyperparathyroidism. We discussed that his calcium was high at that time as it is now, but his PTH is WNL.
Objective Data
-
Labs:
Laboratory Results
04/18/25
08:16
Sodium 142
Potassium 3.5
Chloride 113 H
Carbon Dioxide 21 L
BUN 27 H
Creatinine 1.6 H
Glucose 78
Calcium 10.0
Vital Signs:
Vital Signs
Temp Pulse Resp BP Pulse Ox
97.5 F 69 16 121/76 97
04/18/25 11:23 04/18/25 11:23 04/18/25 11:23 04/18/25 11:23 04/18/25 11:23
I&O
04/17/25 04/18/25 04/19/25
06:59 06:59 06:59
Intake Total 480 / 480 1320 / 1320
Balance 480 / 480 1320 / 1320
Physical Exam
-
General: Well Developed, Well Nourished, No Apparent Distress and Comfortable
HEENT: Normocephalic, Atraumatic, Moist Mucous Membranes and Anicteric
Respiratory: Clear to Auscultation and Non Labored Respirations
Cardiac: Regular Rhythm and S1/S2
GI: Soft and Nontender
Skin: Warm and Dry
Neuro: AO x 3, No Motor Deficits and Nonfocal/Grossly Intact
Psych: Calm
[2025-04-18] MEDS: THERAGRAN 1 TABLET PO (08:12)
[2025-04-18] MEDS: FOLVITE 2 MG PO (08:12)
[2025-04-18] MEDS: HEPARIN 5000 UNITS SC (08:13)
--- NOTE | 2025-04-18 09:57 | W.PN.NEPH.PH ---
Today's Communication / Plan
-
Noncontrast CT scan of chest
Check activated vitamin D level
DC IV fluid
Follow BMP
Discussed with patient
Assessment/Plan
-
Impression:
VIDA
Chronic kidney disease stage IIIb (1.7)
Hypercalcemia
Rheumatoid arthritis on methotrexate and recent addition of Plaquenil
History of partial parathyroidectomy
History of nephrocalcinosis and nephrolithiasis
History of hypertension
Plan:
VIDA:
- Likely due to strong prerenal stimulus in setting of hypercalcemia and volume depletion with associated low blood pressure on presentation
- Withhold all antihypertensives and especially hydrochlorothiazide in setting of hypercalcemia and suspected volume depletion
- Accurate I's and O's Daily weights obtain urinalysis urine sodium and urine creatinine
-With hold ARB in setting of acute kidney injury
-Creatinine approached baseline at 1.8 and grossly
-NSS 100cc/hr
Hypercalcemia:
- Of note patient's calcium was 9.8 with an associated intact PTH level of 63 on 02/17/2025
- No new medications have been added with the exception of Plaquenil by rheumatology= after further discussion with the patient and his since initiation has been eating less and not feeling well
- Repeat intact PTH obtain (43) (this is still inappropriately elevated) vitamin D level = 29,vitamin D level, SPEP ,RODNEY level nml ,TSH ok, PTH RP= pending
-Will check activated vitamin D level as well
- Withholding hydrochlorothiazide indefinitely
-DC further IV fluids as weights rising
-I will consider repeating pamidronate if calcium continues to climb
-Discussed with hospitalist we will proceed forward with CAT scan of chest
without IV contrast to evaluate for possible malignancy causality
- Still awaiting diagnostic workup for hypercalcemia (SPEP and PTH rp)
There exists the possibility that his hypercalcemia was due to his hydrochlorothiazide administration in the setting of some underlying primary hyperparathyroidism, however I would not expect this clinical presentation with sudden escalation of
profound hypercalcemia over 8 weeks time
-
-
Date of Service: April 18, 2025
CC / HPI / ROS
-
Chief Complaint:
Hyperkalemia
History of Present Illness:
Acute kidney injury and hypercalcemia
Hemodynamically stable
Review of Systems:
Not weak
Weights up
Some diarrhea overnight
Labs
-
Labs:
WBC 7.0 10^3/uL (4.8-10.8) 04/17/25 07:26
RBC 3.72 10^6/uL (4.70-6.10) L 04/17/25 07:26
Hgb 11.4 g/dL (13.0-18.0) L 04/17/25 07:26
Hct 34.9 % (39.0-52.0) L 04/17/25 07:26
Plt Count 232 10^3/uL (130-400) 04/17/25 07:26
eGFR 39.25 04/17/25 07:26
Phosphorus 3.9 mg/dl (2.5-4.5) 04/14/25 10:01
Albumin 3.3 g/dl (3.5-5.0) L 04/17/25 07:26
Physical Exam
-
Vital Signs:
Vital Signs
Temp Pulse Resp BP Pulse Ox
97.7 F 66 18 165/89 95
04/18/25 07:18 04/18/25 07:18 04/18/25 07:18 04/18/25 07:18 04/18/25 07:18
Respiratory:: Bilateral: CTA
Lung Excursion:: Normal
Abdomen:: Soft
Bowel Sounds:: Normal
Extremity Edema:: +1: Bilateral:
[place] Catheter: No
[2025-04-18 10:01] LABS: Blood Urea Nitrogen 27 mg/dl (9-20); Calcium 10.0 mg/dl (8.4-10.2); Carbon Dioxide 21 mmol/L (22-30); Chloride 113 mmol/L (98-107); Estimated Creatinine Clearance 50 ml/min; Glucose 78 mg/dl (70-99); Potassium 3.5 mmol/L (3.5-5.1); Sodium 142 mmol/L (135-145); eGFR 45.21
[2025-04-18 11:23] VITALS: BP 121/76
[2025-04-18 14:32] VITALS: BP 143/90
--- NOTE | 2025-04-18 14:48 | CM ---
Reviewed the chart notes and spoke with the patient at the bedside. Patient for discharge today. Spouse to provide transportation. No needs.
--- NOTE | 2025-04-18 16:19 | W.DCSUMMARY ---
Discharge Summary
Discharge Data
Date of Admission: 04/14/25
Date of Discharge: 04/18/25
-
Pending Results: Yes
Additional Pending Results:
SPEP, PTHrp, alpha beta gamma globulins
Hospital Course
74yoM PMH hypercalcemia s/p partial parathyroidectomy 20 years ago, HTN, CKD 3B, renal calculi, RA MTX presenting with hypercalcemia noted on outpt labs.
Pt reported reduced PO intake with lost weight. Denies fever, chills, nausea, vomiting, hematochezia. Few months of SOB and fatigue, brain fog, cough in mornings. 2 weeks of reduced mobility. Recently started and stopped Plaquenil for RA.
Ca 15.8, ionized Ca 1.94. PTH 46. Vit d 29. IVF started with 90mg pamidronate. HCTZ held. MTX already held outpt. Acute on chronic VIDA, nephrotoxins held. SPEP, RODNEY, TSH, PTH, PTHrp, alpha beta gamma globulins, ordered. RODNEY, TSH, PTH WNL. IVF
continued. CXR demonstrated no abdnormaility. US LE no evidence of DVT in setting of peripheral edema. ECG L axis, no change from 11/01/18.
04/14 pamidronate and IVF Ca 15.8
04/15 IVF and lasix, Mg 12.6
04/16 IVF Ca 10.4
04/17 IVF Ca 11
04/18 IVF and d/c. Ca 10.0
Ca stabilized by 04/17. [place] scan to r/o malignant cause of hypercalcemia demonstrated no concerning consolidation or mass. Close nephrology f/u needed.
Discharge Plan
-
Patient Disposition: Home (Routine Discharge)
Discharge Diagnosis/Procedures: hypercalcemia
Condition: Good
Diet: As tolerated
Activity: No restrictions
Driving Restrictions: As prior to admission
Bathing Restrictions: None
Referrals:
Raúl Merlos DO [Active, Nephrology] - 04/20/25
Izes,Ronny, DO [Family Provider, Family Practice]
Additional Discharge Medication Instructions: BMP in 3 days. Follow up with nephrology and PCP.
CT demonstrated pericardial effusion. Please follow up with [facility] outpatient with a global [employer].
Stop taking hydrochlorothiazide.
Prescriptions:
Continued
gabapentin 300 MG capsule
300 mg PO HS
losartan 50 mg tablet
50 mg PO HS
methotrexate sodium 2.5 mg tablet
10 mg PO MARCANO
potassium citrate 10 mEq (1,080 mg) tablet extended release
10 meq PO MEALS
folic acid 1 mg tablet
2 mg PO DAILY
multivitamin Tablet
1 tab PO DAILY
[facility] Supplement
1 tab PO DAILY
Discontinued
hydrochlorothiazide 25 mg tablet
25 mg PO DAILY
Discharge Orders:
Discharge Patient (As Directed); Ordered 04/18/25
Ordered By: Marti Gloria
Discharge Date and Time
Discharge Date/Time: 04/18/25 15:13
Print Language: ICELANDIC
--- NOTE | 2025-04-18 17:32 | W.DCSUMMARY ---
Documented by User: Carolina Gilbert MD, Resident 04/20/25 06:44
Discharge Summary
Discharge Data
Date of Admission: 04/14/25
Date of Discharge: 04/20/25
-
Pending Results: Yes
Additional Pending Results:
PTHrP, SPEP, and Serum Immunofixation Reflux
Hospital Course
Discharging Physician:
Carolina Galvan
Disposition:
Home
Primary Care Physician:
Ronny Jacobson
Principal Discharge Diagnosis:
Hypercalcemia
Chronic Discharge Diagnosis:
Hypertension, chronic kidney disease 3b, renal calculi, nephrocalcinosis, rheumatoid arthritis, hyperparathyroidism status post partial parathyroidectomy.
Hospital Course:
74 years old male presented to the ED for evaluation of elevated calcium. Over the past several days, he has been feeling weak and fatigued with brain fog and nausea, and has had poor PO intake for several days. He noted that he had recently started
on Plaquenil for his RA, which seems to have triggered most of his other symptoms, and the medication was stopped by his environment artist. He did lab tests through his environment artist, showing a calcium level greater than 15. Patient was on
methotrexate previously before starting Plaquenil, which was stopped by his environment artist when symptoms started. He follows up with in the nephrology office for chronic kidney disease, and his creatinine has been stable at 1.7 ml per
last visit on 02/05/2025, and his Calcium level was around 9.8. His blood work at the hospital showed Calcium 15.8 and Creatine 2.7, GFR 34.59, BUN 47, PTH within normal limits, and low Vitamin D 25 Hydroxy 29.4.
Initial ER vital sign T 98.5 F HR90 RR18 bl.pr 119/97 O2 sat 95%
Hypercalcemia is likely multifactorial in the setting of volume depletion, thiazide diuretic use, and a history of parathyroidectomy 20 years ago. The patient was also found to have acute kidney injury on CKD 3b, most likely due to volume
contraction secondary to hypercalcemia and volume depletion with associated low blood pressure on presentation. Patient started on IV fluids and Bisphosphonate (Pamidronate) IV therapy, and nephrology was consulted and the patient was admitted to
the hospital for further management.
During hospitalization patient remained on IV fluids, Zofran PRN, and Magnesium was repleted. The next day, the calcium level went down to 12.9, but still high, and he received one low dose of Lasix therapy per acetylene plant operator as the patient had a 1L
oxygen requirement, and chest x-ray was normal with no pulmonary edema, though this helped with calcium as well.
Chest x-ray normal, EKG positive for mild left ventricular hypertrophy. During hospitalization, Hydrochlorothiazide had been held in the setting of hypercalcemia and suspected volume depletion with held ARB in the setting of VIDA, and Procardia XL 30
mg twice daily PRN when the blood pressure level elevated more than 160/100. Other labs had been ordered by nephrology to rule out other sources of calcium production, like RODNEY (lung cancer), which was wnl . TSH wnl
On 04/16/2025, the patient�s symptoms started improving, and his Calcium level was 10.4 with Creatinine 2 and BUN 40, and he was on 2L oxygen supplement. The patient had left leg swelling per examination, and Doppler US was done, which was negative;
DVT was ruled out.
04/17/2025, patient still symptomatically improving and was off the Oxygen supplement, his left leg swelling improved, Calcium level 11, BUN 34, and creatinine 1.8 (improved to baseline CKD 2b). Per the acetylene plant operator's recommendation to observe the
calcium level for one more day and IV fluids discontinued.
04/18/2025: patient still symptomatically improving, Calcium level 10 wnl , creatinine 1.8 (back to his baseline), BUN 27, GFR 45.21. per nephrology recommendation CT Chest/abd/pelvis to rule out other sources of hypercalcemia and the scan showed no
acute pathology of the chest, abdomen and pelvis identified. A new tiny pericardial effusion versus pericardial thickening was found. CT Neck showed unremarkable unenhanced CT exam.
Per nephrology, Patient eager to go home soon. He reports feeling better today except exacerbation of his chronic IBS. 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 Chronic
back stable. Recommended to follow up with his PCP and nephrology as an outpatient visit and to assess his new pericardial effusion by 2D ECHO with area development manager . Hydrochlorothiazide discontinue at discharge. Patient verbalized understanding the
discharge plane and discharged in stable condition.
Important Imaging Findings:
CT Neck W/o Iv Contrast 04/18/2025:
FINDINGS: The thyroid gland is unremarkable. The unenhanced salivary glands are within normal limits. There is no significant lymphadenopathy and are no abnormal masses considering the unenhanced technique. The airway is unremarkable. The imaged
lungs are clear. The imaged osseous structures show mild degenerative disease. The imaged paranasal sinuses are clear.
IMPRESSION: Unremarkable unenhanced CT exam of the neck.
CT Chest/abd/pel Wo Iv Cont 04/18/2025:
COMPARISON EXAMINATION: CT the abdomen and pelvis 08/06/2012, chest x-ray 04/14/2025
FINDINGS:
CHEST:
There are no abnormal pleural or parenchymal pulmonary masses.
There is no significant parenchymal airspace disease.
There is no pleural effusion.
There are no abnormal mediastinal masses.
There is no hilar lymphadenopathy.
There is no mediastinal lymphadenopathy.
There is no axillary lymphadenopathy.
There is a tiny pericardial effusion versus pericardial thickening.
Abdomen and pelvis: The unenhanced liver, spleen, gallbladder and pancreas are unremarkable aside from pancreatic fatty infiltration and at least one 2 small to characterize hypodense hepatic lesion likely small cyst or hemangioma... The adrenal
glands are unremarkable. There are bilateral small simple renal cysts. There is a mildly dense especially lesion off the lower left kidney measuring 1.9 cm. There are numerous nonobstructing bilateral calcifications. Some appear cortical. All are
small.
.. The abdominal aorta is normal caliber. No significant lymphadenopathy is noted. Bowel loops are normal caliber. The terminal ileum and appendix are within normal limits. There is mild diverticulosis.
There is a fat-containing umbilical hernia without signs of incarceration or strangulation. It measures 3 cm.
No free fluid is noted.. The prostate gland is mildly enlarged. There is moderate metallic artifact in the pelvis due to the bilateral hip hardware. The bladder is not fully visualized.
The osseous portion of the chest, abdomen and pelvis show bilateral hip replacements, postsurgical change of lumbar spine, moderate degenerative disease and postsurgical change of the left shoulder.
IMPRESSION: No acute pathology of the chest, abdomen and pelvis identified.
Tiny pericardial effusion versus pericardial thickening. New left common
Pancreatic fatty infiltration. Stable
Too small to characterize hypodense hepatic lesion likely small cyst or hemangioma. Stable
Bilateral simple renal cysts. Increased in size and number. Mildly dense probable benign proteinaceous cyst of the left kidney. Decreased.
Numerous small nonobstructing bilateral renal stones. Decreased in size and number.
Diverticulosis. Stable
Fat-containing umbilical hernia. No evidence of incarceration or strangulation. Mildly enlarged.
Mild prostate hypertrophy. Enlarged
Limited evaluation of the bladder.
If the patient has emphysema, patient should be assessed for an annual low dose lung cancer CT program, as pulmonary emphysema is an independent risk factor for lung cancer.
US Periph Venous LOWER Ext LT 04/16/2025:
FINDINGS:
The left common femoral, femoral, popliteal, peroneal, and posterior tibial veins are patent. There is no sonographic evidence for deep venous thrombosis.
IMPRESSION:
No sonographic evidence for left lower extremity deep venous thrombosis.
Chest X-ray 04/14/2025:
FINDINGS:
Lungs: No convincing focal infiltrates. No significant pleural effusions. No visualized pneumothorax.
Heart: Cardiac and mediastinal contours are unremarkable. No overt pulmonary vascular congestion.
Osseous structures: No acute abnormalities.
IMPRESSION:
No acute cardiopulmonary process.
Discharge Plan
-
Patient Disposition: Home (Routine Discharge)
Discharge Diagnosis/Procedures: hypercalcemia
Condition: Good
Diet: As tolerated
Activity: No restrictions
Driving Restrictions: As prior to admission
Bathing Restrictions: None
Referrals:
Raúl Merlos DO [Active, Nephrology] - 04/20/25
Ronny Jacobson DO [Family Provider, Family Practice]
Additional Discharge Medication Instructions: BMP in 3 days. Follow up with nephrology and PCP.
CT demonstrated pericardial effusion. Please follow up with 2D Echo outpatient with a area development manager.
Stop taking hydrochlorothiazide.
Prescriptions:
Continued
gabapentin 300 MG capsule
300 mg PO HS
losartan 50 mg tablet
50 mg PO HS
methotrexate sodium 2.5 mg tablet
10 mg PO MARCANO
potassium citrate 10 mEq (1,080 mg) tablet extended release
10 meq PO MEALS
folic acid 1 mg tablet
2 mg PO DAILY
multivitamin Tablet
1 tab PO DAILY
Greens Supplement
1 tab PO DAILY
Discontinued
hydrochlorothiazide 25 mg tablet
25 mg PO DAILY
Discharge Orders:
Discharge Patient (As Directed); Ordered 04/18/25
Ordered By: Marti Glroia
Discharge Date and Time
Discharge Date/Time: 04/18/25 15:13
Print Language: ICELANDIC

Documented by User: Marti Gloria MD, Resident 04/18/25 19:08
Discharge Summary
Discharge Data
Date of Admission: 04/14/25
Date of Discharge: 04/18/25
Hospital Course
Discharging Physician:
Carolina Galvan
Disposition:
Home
Primary Care Physician:
Ronny Jacobson
Principal Discharge Diagnosis:
Hypercalcemia
Chronic Discharge Diagnosis:
Hypertension, chronic kidney disease 3b, renal calculi, nephrocalcinosis, rheumatoid arthritis, hyperparathyroidism status post partial parathyroidectomy.
Hospital Course:
74 years old male presented to the ED for evaluation of elevated calcium. Over the past several days, he has been feeling weak and fatigued with brain fog and nausea, and has had poor PO intake for several days. He noted that he had recently started
on Plaquenil for his RA, which seems to have triggered most of his other symptoms, and the medication was stopped by his environment artist. He did lab tests through his environment artist, showing a calcium level greater than 15. Patient was on
methotrexate previously before starting Plaquenil, which was stopped by his environment artist when symptoms started. He follows up with in the nephrology office for chronic kidney disease, and his creatinine has been stable at 1.7 ml per
last visit on 02/05/2025, and his Calcium level was around 9.8. His blood work at the hospital showed Calcium 15.8 and Creatine 2.7, GFR 34.59, BUN 47, PTH within normal limits, and low Vitamin D 25 Hydroxy 29.4.
Initial ER vital sign T 98.5 F HR90 RR18 bl.pr 119/97 O2 sat 95%
Hypercalcemia is likely multifactorial in the setting of volume depletion, thiazide diuretic use, and a history of parathyroidectomy 20 years ago. The patient was also found to have acute kidney injury on CKD 3b, most likely due to volume
contraction secondary to hypercalcemia and volume depletion with associated low blood pressure on presentation. Patient started on IV fluids and Bisphosphonate (Pamidronate) IV therapy, and nephrology was consulted and the patient was admitted to
the hospital for further management.
During hospitalization patient remained on IV fluids, Zofran PRN, and Magnesium was repleted. The next day, the calcium level went down to 12.9, but still high, and he received one low dose of Lasix therapy per acetylene plant operator as the patient had a 1L
oxygen requirement, and chest x-ray was normal with no pulmonary edema, though this helped with calcium as well.
Chest x-ray normal, EKG positive for mild left ventricular hypertrophy. During hospitalization, Hydrochlorothiazide had been held in the setting of hypercalcemia and suspected volume depletion with held ARB in the setting of VIDA, and Procardia XL 30
mg twice daily PRN when the blood pressure level elevated more than 160/100. Other labs had been ordered by nephrology to rule out other sources of calcium production, like RONDEY (lung cancer), which was wnl . TSH wnl
On 04/16/2025, the patient�s symptoms started improving, and his Calcium level was 10.4 with Creatinine 2 and BUN 40, and he was on 2L oxygen supplement. The patient had left leg swelling per examination, and Doppler US was done, which was negative;
DVT was ruled out.
04/17/2025, patient still symptomatically improving and was off the Oxygen supplement, his left leg swelling improved, Calcium level 11, BUN 34, and creatinine 1.8 (improved to baseline CKD 2b). Per the acetylene plant operator's recommendation to observe the
calcium level for one more day and IV fluids discontinued.
04/18/2025: patient still symptomatically improving, Calcium level 10 wnl , creatinine 1.8 (back to his baseline), BUN 27, GFR 45.21. per nephrology recommendation CT Chest/abd/pelvis to rule out other sources of hypercalcemia and the scan showed no
acute pathology of the chest, abdomen and pelvis identified. A new tiny pericardial effusion versus pericardial thickening was found. CT Neck showed unremarkable unenhanced CT exam.
Per nephrology, Patient eager to go home soon. He reports feeling better today except exacerbation of his chronic IBS. 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 Chronic
back stable. Recommended to follow up with his PCP and nephrology as an outpatient visit and to assess his new pericardial effusion by 2D ECHO with area development manager . Hydrochlorothiazide discontinue at discharge. Patient verbalized understanding the
discharge plane and discharged in stable condition.
Important Imaging Findings:
CT Neck W/o Iv Contrast 04/18/2025:
FINDINGS: The thyroid gland is unremarkable. The unenhanced salivary glands are within normal limits. There is no significant lymphadenopathy and are no abnormal masses considering the unenhanced technique. The airway is unremarkable. The imaged
lungs are clear. The imaged osseous structures show mild degenerative disease. The imaged paranasal sinuses are clear.
IMPRESSION: Unremarkable unenhanced CT exam of the neck.
CT Chest/abd/pel Wo Iv Cont 04/18/2025:
COMPARISON EXAMINATION: CT the abdomen and pelvis 08/06/2012, chest x-ray 04/14/2025
IMPRESSION: No acute pathology of the chest, abdomen and pelvis identified.
Tiny pericardial effusion versus pericardial thickening. New left common
Pancreatic fatty infiltration. Stable
Too small to characterize hypodense hepatic lesion likely small cyst or hemangioma. Stable
Bilateral simple renal cysts. Increased in size and number. Mildly dense probable benign proteinaceous cyst of the left kidney. Decreased.
Numerous small nonobstructing bilateral renal stones. Decreased in size and number.
Diverticulosis. Stable
Fat-containing umbilical hernia. No evidence of incarceration or strangulation. Mildly enlarged.
Mild prostate hypertrophy. Enlarged
Limited evaluation of the bladder.
If the patient has emphysema, patient should be assessed for an annual low dose lung cancer CT program, as pulmonary emphysema is an independent risk factor for lung cancer.
US Periph Venous LOWER Ext LT 04/16/2025:
IMPRESSION:
No sonographic evidence for left lower extremity deep venous thrombosis.
Chest X-ray 04/14/2025:
IMPRESSION:
No acute cardiopulmonary process.
Discharge Plan
-
Patient Disposition: Home (Routine Discharge)
Discharge Diagnosis/Procedures: hypercalcemia
Condition: Good
Diet: As tolerated
Activity: No restrictions
Driving Restrictions: As prior to admission
Bathing Restrictions: None
Referrals:
Raúl Merlos DO [Active, Nephrology] - 04/20/25
Ronny Jacobson DO [Family Provider, Family Practice]
Additional Discharge Medication Instructions: BMP in 3 days. Follow up with nephrology and PCP.
CT demonstrated pericardial effusion. Please follow up with 2D Echo outpatient with a area development manager.
Stop taking hydrochlorothiazide.
Prescriptions:
Continued
gabapentin 300 MG capsule
300 mg PO HS
losartan 50 mg tablet
50 mg PO HS
methotrexate sodium 2.5 mg tablet
10 mg PO MARCANO
potassium citrate 10 mEq (1,080 mg) tablet extended release
10 meq PO MEALS
folic acid 1 mg tablet
2 mg PO DAILY
multivitamin Tablet
1 tab PO DAILY
Greens Supplement
1 tab PO DAILY
Discontinued
hydrochlorothiazide 25 mg tablet
25 mg PO DAILY
Discharge Orders:
Discharge Patient (As Directed); Ordered 04/18/25
Ordered By: Marti Gloria
Discharge Date and Time
Discharge Date/Time: 04/18/25 15:13
Print Language: ICELANDIC
[2025-04-19 10:18] LABS: Albumin 3.34 g/dL (3.75-5.01); SPEP IFE Reflex Not Done; Total Protein-Electrophoresis 6.2 g/dL (6.3-8.2)
[2025-04-19 12:54] LABS: PTH Related Peptide LC-MS/MS 4.0 pmol/L (0.0-2.3)
== END 2025-04-18 15:13 | disposition home or self-care (01) | DRG 641 ==
LOC: 4 EAST ACU 13:37
PROVIDERS: Physician Assistant; Specialist Research Data Abstracter/Coder; ADMITTING PHYSICIAN Hospitalist; ATTENDING PHYSICIAN Hospitalist; CONSULT PHYSICIAN Specialist; EMERGENCY PHYSICIAN Emergency Medicine; FAMILY PHYSICIAN Family Medicine
DX: E83.52 Hypercalcemia (principal); I31.39 Other pericardial effusion (noninflammatory); N17.9 Acute kidney failure, unspecified; I12.9 Hypertensive chronic kidney disease with stage 1 through stage 4 chronic kidney disease, or unspecified chronic kidney disease; N18.32 Chronic kidney disease, stage 3b; Z87.442 Personal history of urinary calculi; N20.0 Calculus of kidney; M06.9 Rheumatoid arthritis, unspecified; E86.9 Volume depletion, unspecified; K58.9 Irritable bowel syndrome, unspecified; K57.30 Diverticulosis of large intestine without perforation or abscess without bleeding; D18.03 Hemangioma of intra-abdominal structures; N28.1 Cyst of kidney, acquired; K42.9 Umbilical hernia without obstruction or gangrene; Z96.643 Presence of artificial hip joint, bilateral; N40.0 Benign prostatic hyperplasia without lower urinary tract symptoms; K21.9 Gastro-esophageal reflux disease without esophagitis; Z79.631 Long term (current) use of antimetabolite agent; Z79.899 Other long term (current) drug therapy; Z90.89 Acquired absence of other organs
CPT/HCPCS: 70490; 71046; 71250; 74176; 80048; 80053; 81003; 81015; 82164; 82306; 82330; 83519; 83735; 83935; 83970; 84100; 84155; 84165; 84300; 84443; 85025; 85027; 87086; 93005; 93971; 96374; 99291; J2430

== ENCOUNTER → 2025-04-20 10:26 | Outpatient (REF) | payer OTHER, SELFPAY ==
[2025-04-20 12:40] LABS: Blood Urea Nitrogen 20 mg/dl (9-20); Calcium 10.4 mg/dl (8.4-10.2); Carbon Dioxide 21 mmol/L (22-30); Chloride 109 mmol/L (98-107); Glucose 102 mg/dl (70-99); Potassium 3.9 mmol/L (3.5-5.1); Sodium 142 mmol/L (135-145); eGFR 42.04
== END ==
LOC: HWLAB 10:26
PROVIDERS: FAMILY PHYSICIAN Family Medicine; OTHER PHYSICIAN Internal Medicine Cardiovascular Disease; OTHER PHYSICIAN Specialist; REFERRING PHYSICIAN Internal Medicine Rheumatology
DX: E83.52 Hypercalcemia (principal)
CPT/HCPCS: 36415; 80048